=== PATIENT | female | born 1965 | race African-American/Black ===

== ENCOUNTER → 2019-08-17 | Outpatient (CLI) | payer OTHER ==
[~2019-08-17] VITALS: Ht 157.5 cm; Wt 71.7 kg
[~2019-08-17] MED LIST: AMLODIPINE BESY10 MG PO; IBUPROFEN 800800 M1 PO; LIDODERM1 EACH TOP; LOSARTAN-HCTZ1 EACH PO; NICODERM CQ1 EAC1 TOP; XANAX 0.5 MG0.5 MG PO; ZANAFLEX4 M1 PO; ZANAFLEX4 M2 PO
[2019-08-17 13:42] VITALS: BP 127/96
--- NOTE | 2019-08-17 14:12 | NUR ---
Pain Clinic Assessment: 1. History of Osteoarthritis: BACK History of Rheumatoid Arthritis: Not Applicable 2. Height: 5 ft. 2 in. 157.5 cm. Weight: 158.0 lb. oz. 71.668 kg. Patient's BMI: 28.9 3. Vital Signs: BP: 127/96 Pulse: 82 Resp: 14 Temp: 02 Sat: 99 ECG Mon: 4. Pain Intensity: 10 5. Fall Risk: Dizziness: N Needs help standing or walking: N Fallen in the last 3 months: N Fall risk comments: 6. Patient on Blood Thinner: None 7. History of Hypertension: Y 8. Opioid Therapy greater than 6 weeks: N Opiate Contract Signed: 9. Risk Assessment Tool Provided: low-0 10. Functional Assessment Tool: 63/70 11. Recreational Drug Use: Current within past 3 mos Drug Type: Tobacco Use: Current Every Day Smoker Tobacco Type: Cigars Amount or Packs/day: 1 PACK How Many Years: 36 Alcohol Use: Yes Frequency: Weekly Quant: 3
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
== END ==
LOC: PAIN 06-23 06:44
DX: M50.20 Other cervical disc displacement, unspecified cervical region (principal); R20.2 Paresthesia of skin; M79.622 Pain in left upper arm; G89.29 Other chronic pain; Z79.899 Other long term (current) drug therapy

== ENCOUNTER → 2019-08-24 | Outpatient (CLI) | payer OTHER ==
[~2019-08-24] VITALS: Ht 157.5 cm; Wt 71.1 kg
[2019-08-24 13:50] VITALS: BP 136/98
--- NOTE | 2019-08-24 13:54 | NUR ---
Pain Clinic Assessment: 1. History of Osteoarthritis: BACK History of Rheumatoid Arthritis: Not Applicable 2. Height: 5 ft. 2 in. 157.5 cm. Weight: 156.8 lb. oz. 71.124 kg. Patient's BMI: 28.7 3. Vital Signs: BP: 136/98 Pulse: 96 Resp: 18 Temp: 02 Sat: 99 ECG Mon: 4. Pain Intensity: 8 5. Fall Risk: Dizziness: N Needs help standing or walking: N Fallen in the last 3 months: N Fall risk comments: 6. Patient on Blood Thinner: None 7. History of Hypertension: Y 8. Opioid Therapy greater than 6 weeks: N Opiate Contract Signed: 9. Risk Assessment Tool Provided: low-0 10. Functional Assessment Tool: 63/70 11. Recreational Drug Use: Current within past 3 mos Drug Type: Tobacco Use: Current Every Day Smoker Tobacco Type: Amount or Packs/day: How Many Years: Alcohol Use: Yes Frequency: Quant:
--- NOTE | 2019-08-30 08:11 | HPC ---
[facility] [place] [address] PAIN MANAGEMENT CONSULTATION Name: EVERETT ALVARADO Room #: REG GILBERTO Rohini#: [id number] Admission: 08/24/19 Attend Phys: Carlos A Odom DO Discharge: Date of : 63 Report #: [id number] THIS REPORT FOR: cc: Jovita Collins MD, Karla L. MD Johnson, James E. DO ~ DATE OF SERVICE: 08/24/2019 REFERRING PHYSICIAN: Jovita Collins MD CHIEF COMPLAINT: Neck pain, left upper extremity pain and paresthesias. HISTORY OF PRESENT ILLNESS: As you know, the patient is a very pleasant 54-year-old female who returns today in followup visit to undergo cervical epidural injection under fluoroscopic guidance. We saw the patient on 08/17/2019, diagnosed with cervical radiculopathy and was to undergo a cervical epidural injection under fluoroscopic guidance. The patient prepared to undergo the procedure, but as we started the procedure, she became quite nervous and requested that we discontinue the process. We provided the patient with anxiolytic medication for the return visit today. She returns ready to undergo cervical epidural injection under fluoroscopic guidance. We did discuss once again today the treatment options for cervical radiculopathy including physical therapy, medication management suggestions to the primary care physician. We discussed the cervical epidural injection for which the patient was referred to our clinic and the surgical options available for her symptoms. After that discussion, she once again chose to undergo a cervical epidural injection under fluoroscopic guidance. The patient reports no new injury or trauma since our visit of last week. ALLERGIES: No known drug allergies. CURRENT MEDICATIONS: See chart. SOCIAL HISTORY: The patient reports she is a 1 pack of tobacco per day smoker, has done so for 36 years, denies IV or illicit drug use, admits to approximately 3 alcoholic beverages per week. 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 She is unaccompanied today. PHYSICAL EXAMINATION: VITAL SIGNS: Blood pressure 136/98, pulse is 96, respiratory rate 18 and unlabored, the patient is 99% on room air. Height 5 feet 2 inches tall, weight 156.8 pounds, BMI calculated 28.7. GENERAL: A well-developed, well-nourished, well-hydrated 54-year-old female appearing stated age, pain is rated today at 8/10. [address] [address] PAIN MANAGEMENT CONSULTATION Name: EVERETT ALVARADO Room #: REG CLI [facility]#: [id number] Admission: 08/24/19 Attend Phys: Carlos A Odom DO Discharge: Date of : 63 Report #: [id number] HEENT: Normocephalic, atraumatic. Pupils equal, round, reactive to light. Speech fluent. EXTREMITIES: Show no clubbing, no cyanosis, and no edema. MUSCULOSKELETAL: Upper extremity strength equal and symmetrical, 5/5. Slight giveaway strength noted again with biceps flexion and triceps extension on the left when compared to the right. Spurling's test is equivocal left, negative right. Muscle bulk and tone is symmetrical in the upper extremities. ASSESSMENT: 1. Cervical radiculopathy. 2. Displacement of cervical intervertebral disk with radiculopathy. 3. Intractable pain. PLAN: 1. The patient returns today in followup visit to undergo cervical epidural injection under fluoroscopic guidance. The patient has taken her anxiolytic medication and is prepared to undergo the procedure today. She has been advised the risks and benefits of a cervical epidural injection. These risks include but are not necessarily limited to bleeding, bruising, infection, worsening pain, no relief of pain, also risk of temporary or permanent muscle weakness, temporary or permanent nerve damage, possible paralysis and . The patient states understood and wished to proceed. 2. No medication changes made at today's visit. The patient will continue current medical therapy as prior prescribed. 3. We will see the patient back in followup visit in approximately 30 days. At that time, we will review the efficacy of today's cervical epidural injection and determine if next in the series of cervical epidural injections might be warranted. PROCEDURE NOTE DESCRIPTION OF PROCEDURE: C7-T1 cervical epidural steroid injection under fluoroscopic guidance. This is the first procedure of the first series that the patient is undergoing. After obtaining written consent, the patient was taken back to the fluoroscopy suite and placed in a prone position with separate pillows under chest and forehead to decrease cervical lordosis. The skin overlying the cervical area was prepped and draped in an aseptic fashion. The C7-T1 vertebral interspace was identified by AP fluoroscopy. The skin and subcutaneous tissue overlying the target site of injection was anesthetized using 3 mL of 1% lidocaine. A 20-gauge 3-1/2 inch Tuohy needle was advanced under fluoroscopic guidance toward the epidural space using a left paramedian approach. The epidural space was identified using a loss of resistance to air technique. After negative [facility] [address] [place] [address] PAIN MANAGEMENT CONSULTATION Name: EVERETT ALVARADO Room #: REG GILBERTO Nova#: [id number] Admission: 08/24/19 Attend Phys: Carlos A Odom DO Discharge: Date of : 63 Report #: [id number] aspiration for heme or cerebrospinal fluid, a total of 1 mL of Omnipaque was injected. A cervical epidurogram was confirmed using AP and oblique fluoroscopy. After negative aspiration for heme or cerebrospinal fluid, 5 mL of a solution containing 2 mL 40 mg per mL, 80 mg total triamcinolone along with 3 mL lidocaine 1% was injected in increments. Contrast spread was noted from posterior epidural space. The needle was then retracted approximately long-term and the needle track was flushed with 1 mL of 1% lidocaine. There were no apparent new sensory deficits in the upper extremities present following the procedure. A sterile bandage was placed over the injection site. The heart rate, pulse oximetry and blood pressure were continuously monitored after the procedure. There were no apparent complications. The patient tolerated the procedure well and was carefully escorted in the recovery room in stable condition. After meeting discharge criteria, the patient was discharged home. <ELECTRONICALLY SIGNED> By: Carlos A Odom DO 08/30/19 0811 1520 1820 Carlos A Odom DO /nt
== END | disposition home or self-care (01) ==
LOC: PAIN 07:07
DX: M50.10 Cervical disc disorder with radiculopathy, unspecified cervical region (principal); G89.29 Other chronic pain; F17.210 Nicotine dependence, cigarettes, uncomplicated; Z98.890 Other specified postprocedural states; Z79.899 Other long term (current) drug therapy

== ENCOUNTER → 2019-11-30 | Outpatient (CLI) | payer OTHER ==
[~2019-11-30] VITALS: Ht 157.5 cm; Wt 72.6 kg
[2019-11-30 13:45] VITALS: BP 126/96
--- NOTE | 2019-11-30 13:55 | NUR ---
Pain Clinic Assessment: 1. History of Osteoarthritis: BACK History of Rheumatoid Arthritis: DENIES 2. Height: 5 ft. 2 in. 157.5 cm. Weight: 160.0 lb. oz. 72.576 kg. Patient's BMI: 29.3 3. Vital Signs: BP: 126/96 Pulse: 72 Resp: 14 Temp: 02 Sat: 100 ECG Mon: 4. Pain Intensity: 9 5. Fall Risk: Dizziness: N Needs help standing or walking: N Fallen in the last 3 months: N Fall risk comments: 6. Patient on Blood Thinner: None 7. History of Hypertension: Y 8. Opioid Therapy greater than 6 weeks: N Opiate Contract Signed: 9. Risk Assessment Tool Provided: low-0 10. Functional Assessment Tool: 63/70 11. Recreational Drug Use: Current within past 3 mos Drug Type: Tobacco Use: Current Every Day Smoker Tobacco Type: Cigars Amount or Packs/day: How Many Years: Alcohol Use: Yes Frequency: Monthly Quant:
--- NOTE | 2019-12-06 09:02 | HPC ---
[facility] [place] [address] PAIN MANAGEMENT CONSULTATION Name: EVERETT ALVARADO Room #: REG GILBERTO Janna.#: [id number] Admission: 11/30/19 Attend Phys: Carlos A Odom DO Discharge: Date of : 63 Report #: [id number] THIS REPORT FOR: cc: Jovita Collins MD, Karla L. MD Johnson, James E. DO ~ DATE OF SERVICE: 11/30/2019 REFERRING PHYSICIAN: Jovita Collins MD CHIEF COMPLAINT: Neck pain, left upper extremity pain with paresthesias, intermittent right upper extremity pain. HISTORY OF PRESENT ILLNESS: As you know, the patient is a very pleasant 54-year-old female who underwent the first in a series of cervical epidural injections on 08/24/2019. The patient reports with that injection she received 50% improvement or greater, lasting for nearly 8 weeks. She returns today in followup visit with recurrence of neck pain and upper extremity pain, which she provides pain score of 9/10. She denies injury or trauma that may have led to symptom development. She returns today in followup visit to begin the process of preauthorization to undergo next in the series of cervical epidural injections to address cervical radiculopathy. The patient denies any specific injury or trauma that may have led to symptom reoccurrence. She has had no changes in her medical history since our last visit. ALLERGIES: No known drug allergies. CURRENT MEDICATIONS: Ibuprofen 800 mg t.i.d., amlodipine 10 mg once a day, Nicoderm patch 1 patch every day. SOCIAL HISTORY: The patient reports she continues to smoke cigars. She denies IV or illicit drug use. Admits to alcohol use on an occasional basis. She is unaccompanied at today's visit. IMAGING: No new imaging available. PHYSICAL EXAMINATION: VITAL SIGNS: Blood pressure 126/96, pulse 72, respiratory rate 14 and unlabored. The patient is 100% on room air. Height 5 feet 2 inches tall, weight 160 pounds, BMI calculated 29.3. GENERAL: Well-developed, well-nourished, well-hydrated 54-year-old female appearing stated age, pain is rated today at 9/10. HEENT: Normocephalic, atraumatic. Pupils equal, round and reactive. Speech is fluent for patient. EXTREMITIES: Show no clubbing, no cyanosis, and no appreciable edema. [address] [address] PAIN MANAGEMENT CONSULTATION Name: EVERETT ALVARADO [facility] #[facility]#: [id number] Admission: 11/30/19 Attend Phys: Carlos A Odom DO Discharge: Date of : 63 Report #: [id number] MUSCULOSKELETAL: Upper extremity muscle bulk and tone equal and symmetrical on comparing left upper extremity to right. She has equal and symmetrical strength 5/5. There appears to be mild giveaway strength noted with biceps flexion, triceps extension on the left when compared to the right. This appears to be related to pain generation. Spurling's test is equivocal left, negative right. ASSESSMENT: 1. Cervical radiculopathy. 2. Displacement of cervical intervertebral disk with radiculopathy. 3. Chronic intractable pain. PLAN: 1. The patient returns today in followup visit having noted excellent benefit with the cervical epidural injection provided at the last visit. She received greater than 50% improvement in overall pain lasting for nearly 8 weeks. Unfortunately, her symptoms have begun to return without inciting injury or trauma. She made today's appointment to begin the process of undergoing evaluation and to gaining prior authorization for the patient to undergo a cervical epidural injection. The patient was advised this process may take anywhere from 4-7 working days. 2. No medication changes made at today's visit. The patient will continue current medical therapy as previously prescribed. 3. We will see the patient back in followup visit once we have achieved authorization for the patient to undergo cervical epidural injection under fluoroscopic guidance to address cervical radiculopathy. We are pleased to see the patient had done so well with the initial epidural injection and hopeful to see similar improvement with the second proposed epidural injection. We will see her back once this authorization has been obtained. <ELECTRONICALLY SIGNED> By: Carlos A Odom DO 12/06/19 0902 1449 [id number] Carlos A Odom DO /nt
== END ==
LOC: PAIN 11-22 06:54
PROVIDERS: ATTEND Anesthesiology Pain Medicine
DX: M50.10 Cervical disc disorder with radiculopathy, unspecified cervical region (principal); M79.642 Pain in left hand; R20.2 Paresthesia of skin; M79.641 Pain in right hand; G89.29 Other chronic pain; Z79.899 Other long term (current) drug therapy

== ENCOUNTER → 2019-12-13 | Outpatient (CLI) | payer OTHER ==
[~2019-12-13] VITALS: Ht 157.5 cm; Wt 72.6 kg
[2019-12-13 13:33] VITALS: BP 145/100
--- NOTE | 2019-12-13 13:34 | NUR ---
Pain Clinic Assessment: 1. History of Osteoarthritis: BACK History of Rheumatoid Arthritis: DENIES 2. Height: 5 ft. 2 in. 157.5 cm. Weight: 160.0 lb. oz. 72.576 kg. Patient's BMI: 29.3 3. Vital Signs: BP: 145/100 Pulse: 90 Resp: 18 Temp: 02 Sat: 96 ECG Mon: 4. Pain Intensity: 8 5. Fall Risk: Dizziness: N Needs help standing or walking: N Fallen in the last 3 months: N Fall risk comments: 6. Patient on Blood Thinner: None 7. History of Hypertension: Y 8. Opioid Therapy greater than 6 weeks: N Opiate Contract Signed: 9. Risk Assessment Tool Provided: low-0 10. Functional Assessment Tool: 63/70 11. Recreational Drug Use: Current within past 3 mos Drug Type: Tobacco Use: Current Every Day Smoker Tobacco Type: Cigarettes Amount or Packs/day: 14 CIG/DAY How Many Years: Alcohol Use: Yes Frequency: Weekly Quant: 2
--- NOTE | 2019-12-14 12:57 | HPC ---
[facility] [place] [address] PAIN MANAGEMENT CONSULTATION Name: EVERETT ALVARADO Room #: REG GILBERTO Saldivar.#: [id number] Admission: 12/13/19 Attend Phys: Carlos A Odom DO Discharge: Date of : 63 Report #: [id number] THIS REPORT FOR: cc: Jovita Collins MD, Karla L. MD Johnson, James E. DO ~ DATE OF SERVICE: 12/13/2019 CHIEF COMPLAINT: Neck pain, left upper extremity pain and paresthesias, intermittent right upper extremity pain. HISTORY OF PRESENT ILLNESS: As you know, the patient is a very pleasant 54-year-old female who has returned today in followup visit to undergo next in the series of cervical epidural injections under fluoroscopic guidance. We saw the patient on 11/29 for precertification. We have gained authorization for the patient to undergo next in the series of epidural injections in hopes of improving pain. The patient indicates pain levels today of about 8/10. States pain mainly in the left neck, left shoulder and left arm. Pain is exacerbated by lying down, improves with medications and previous epidural injection. ALLERGIES: No known drug allergies. CURRENT MEDICATIONS: Nicoderm CQ 1 patch per day, amlodipine 10 mg per day, ibuprofen 800 mg 3 times a day. SOCIAL HISTORY: The patient reports she continues to smoke. Denies IV or illicit drug use. Admits to occasional alcohol beverage. She is unaccompanied today. IMAGING: No new imaging available. PHYSICAL EXAMINATION: VITAL SIGNS: Blood pressure 145/100, pulse 90, respiratory rate 18 and unlabored. The patient is 96% on room air. Height 5 feet 2 inches tall, weight 160 pounds, BMI calculated 29.3. GENERAL: Well-developed, well-nourished, well-hydrated 54-year-old female, appearing stated age. She is in no acute distress. Pain is rated today at about 8/10. HEENT: Normocephalic, atraumatic. Pupils equal, round and reactive. Speech is fluent. EXTREMITIES: Show no clubbing, no cyanosis, no appreciable edema. MUSCULOSKELETAL: Upper extremity strength appears symmetrical 5/5. She again has some mild giveaway strength noted with biceps flexion, triceps extension on the left compared to right. Muscle bulk and tone appears symmetrical. There is no noted atrophy. Spurling's test is equivocal left. [address] [address] PAIN MANAGEMENT CONSULTATION Name: EVERETT ALVARADO Room #: REG [facility]#: [id number] Admission: 12/13/19 Attend Phys: Carlos A Odom DO Discharge: Date of : 63 Report #: [id number] ASSESSMENT: 1. Cervical radiculopathy. 2. Displacement of cervical intervertebral disk with radiculopathy. 3. Chronic intractable pain. PLAN: 1. The patient returns today in followup visit having received preauthorization to undergo cervical epidural injection under fluoroscopic guidance. This is the second in the series of cervical epidural injections. The patient has been advised of the risks and benefits of this procedure. These risks include but are not necessarily limited to bleeding, bruising, infection, worsening pain, no relief of pain, also risk of temporary or permanent muscle weakness, temporary or permanent nerve damage, possible paralysis and . The patient states understood and wished to proceed. 2. We will see the patient back in followup visit on an as needed basis for possible next in the series of cervical epidural injections. We are hopeful the patient will see good and prolonged benefit with the injection provided today. PROCEDURE NOTE: DESCRIPTION OF PROCEDURE: C7-T1 cervical epidural steroid injection under fluoroscopic guidance. This is the second procedure of the first series that the patient is undergoing. After obtaining written consent, the patient was taken back to the fluoroscopy suite and placed in a prone position with separate pillows under chest and forehead to decrease cervical lordosis. The skin overlying the cervical area was prepped and draped in an aseptic fashion. The C7-T1 vertebral interspace was identified by AP fluoroscopy. The skin and subcutaneous tissue overlying the target site of injection was anesthetized using 3 mL of 1% lidocaine. A 20-guage 3-1/2 inch Tuohy needle was advanced under fluoroscopic guidance toward the epidural space using a midline approach. The epidural space was identified using a loss of resistance to air technique. After negative aspiration for heme or cerebrospinal fluid, a total of 1 mL of Omnipaque was injected. A cervical epidurogram was confirmed using AP and oblique fluoroscopy. After negative aspiration for heme or cerebrospinal fluid, 5 mL of a solution containing 2 mL 40 mg per mL, 80 mg total triamcinolone along with 3 mL lidocaine 1% was injected in increments. Contrast spread was noted from posterior epidural space. The needle was then retracted approximately long term and the needle track was flushed with 1 mL of 1% lidocaine. There were no apparent new sensory deficits in the upper extremities present following the procedure. A sterile bandage was placed over the injection site. [address] [address] PAIN MANAGEMENT CONSULTATION Name: EVERETT ALVARADO [id number] Admission: 12/13/19 Attend Phys: Carlos A Odom DO Discharge: Date of : 63 Report #: [id number] The heart rate, pulse oximetry and blood pressure were continuously monitored after the procedure. There were no apparent complications. The patient tolerated the procedure well and was carefully escorted in the recovery room in stable condition. After meeting discharge criteria, the patient was discharged home. <ELECTRONICALLY SIGNED> By: Carlos A Odom DO 12/14/19 [id number] Carlos A Odmo DO /nt
== END | disposition home or self-care (01) ==
LOC: PAIN 06:51
PROVIDERS: ATTEND Anesthesiology Pain Medicine
DX: M50.10 Cervical disc disorder with radiculopathy, unspecified cervical region (principal); G89.29 Other chronic pain; F17.210 Nicotine dependence, cigarettes, uncomplicated; Z98.890 Other specified postprocedural states; Z79.899 Other long term (current) drug therapy; Z88.8 Allergy status to other drugs, medicaments and biological substances